=== PATIENT | male | born 1985 | race Caucasian/White ===

== ENCOUNTER → 2019-06-27 14:15 | Outpatient (BNVA) | payer MEDICARE, MEDICAID, SELFPAY | PROVIDERS: Family Provider Nurse Practitioner; PCP Nurse Practitioner; Visit Provider Nurse Practitioner Family | DX: Z00.00 Encounter for general adult medical examination without abnormal findings (principal); D64.9 Anemia, unspecified; Z71.3 Dietary counseling and surveillance; Z71.82 Exercise counseling; G80.9 Cerebral palsy, unspecified; D50.9 Iron deficiency anemia, unspecified; K59.00 Constipation, unspecified | CPT/HCPCS: 82728; 83540; 85025 ==

== ENCOUNTER → 2019-06-30 08:54 | Outpatient (BNVA) | payer MEDICARE, MEDICAID, SELFPAY | PROVIDERS: Family Provider Nurse Practitioner; PCP Nurse Practitioner; Visit Provider Psychiatry & Neurology Psychiatry | DX: F06.30 Mood disorder due to known physiological condition, unspecified (principal) | CPT/HCPCS: 80053; 80156 ==

== ENCOUNTER → 2019-08-11 11:27 | Outpatient (BNVA) | payer MEDICARE, MEDICAID, SELFPAY | PROVIDERS: Family Provider Nurse Practitioner; PCP Nurse Practitioner; Visit Provider Nurse Practitioner Family | DX: Z76.0 Encounter for issue of repeat prescription (principal); R79.89 Other specified abnormal findings of blood chemistry; G81.10 Spastic hemiplegia affecting unspecified side; Z00.00 Encounter for general adult medical examination without abnormal findings; Z71.3 Dietary counseling and surveillance; Z71.82 Exercise counseling; G80.9 Cerebral palsy, unspecified; D64.9 Anemia, unspecified; F06.30 Mood disorder due to known physiological condition, unspecified | CPT/HCPCS: 82728; 83540; 85025 ==

== ENCOUNTER → 2019-08-31 15:34 | Outpatient (BNVA) | payer MEDICARE, MEDICAID, SELFPAY | PROVIDERS: Family Provider Nurse Practitioner; PCP Nurse Practitioner; Visit Provider Nurse Practitioner Family | DX: R50.9 Fever, unspecified (principal); J11.1 Influenza due to unidentified influenza virus with other respiratory manifestations | CPT/HCPCS: 87081; 87804; 87880 ==

== ENCOUNTER → 2019-10-17 10:53 | Outpatient (BNVA) | payer MEDICARE, MEDICAID, SELFPAY | PROVIDERS: Family Provider Nurse Practitioner; PCP Nurse Practitioner; Visit Provider Nurse Practitioner | DX: R79.89 Other specified abnormal findings of blood chemistry (principal) | CPT/HCPCS: 83550; 85025 ==

== ENCOUNTER → 2019-12-06 10:31 | Outpatient (BNVA) | payer MEDICARE, MEDICAID, SELFPAY | PROVIDERS: Family Provider Nurse Practitioner; PCP Nurse Practitioner; Visit Provider Nurse Practitioner | DX: R21 Rash and other nonspecific skin eruption (principal); G80.9 Cerebral palsy, unspecified; L50.9 Urticaria, unspecified | CPT/HCPCS: 87071; 87880 ==

== ENCOUNTER → 2020-04-10 09:38 | Outpatient (BNVA) | payer MEDICARE, MEDICAID, SELFPAY | PROVIDERS: Family Provider Nurse Practitioner; PCP Nurse Practitioner; Visit Provider Nurse Practitioner | DX: F06.30 Mood disorder due to known physiological condition, unspecified (principal) | CPT/HCPCS: 80053; 80156; 85025 ==

== ENCOUNTER 2020-05-11 12:18 | Outpatient (CLI) | payer MEDICARE, MEDICAID, SELFPAY ==
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
== END 2020-05-11 12:19 | disposition home or self-care (01) ==
PROVIDERS: PCP Nurse Practitioner; Visit Provider Internal Medicine Medical Oncology
DX: D70.9 Neutropenia, unspecified (principal); G40.509 Epileptic seizures related to external causes, not intractable, without status epilepticus; G81.10 Spastic hemiplegia affecting unspecified side; X58.XXXS Exposure to other specified factors, sequela; R29.818 Other symptoms and signs involving the nervous system; Z87.820 Personal history of traumatic brain injury; Z79.899 Other long term (current) drug therapy
CPT/HCPCS: 99204

== ENCOUNTER 2020-05-31 11:05 | Outpatient (CLI) | payer MEDICARE, MEDICAID, SELFPAY ==
[2020-05-31 15:07] LABS: Basophils % 0.6 %; Eosinophils # 0.1 10^3/uL (0.0-0.8); Eosinophils % 3.7 %; Hemoglobin 13.5 g/dL (11.7-16.6); Lymphocytes # 1.5 10^3/uL (0.8-4.8); Lymphocytes % 41.1 %; Mean Corpuscular HGB Conc 31.4 g/dL (30.0-36.0); Mean Corpuscular Hemoglobin 25.5 pg (28.0-34.0); Mean Corpuscular Volume 81.1 fL (80-94); Monocytes # 0.4 10^3/uL (0.2-0.9); Monocytes % 10.7 %; Neutrophils # 1.55 10^3/uL (1.8-7.7); Neutrophils % 43.6 %; Nucleated Red Blood Cells % 0 %; Platelet Count 195 10^3/cmm (130-400); Red Cell Distribution Width 13.8 % (12.1-15.1); White Blood Count 3.6 10^3/uL (4.0-10.0)
[2020-05-31 15:41] LABS: Ferritin 484 ng/mL (30-400); Iron 178 ug/dL (59-158); Vitamin B12 457 pg/mL (232-1245)
[2020-05-31 16:53] LABS: Percent Saturation 78.4 % (20-50); Total Iron Binding Capacity 227 mcg/dl; Unsaturated Iron Binding 49 ug/dL (112-347)
== END 2020-05-31 11:06 | disposition home or self-care (01) ==
LOC: ONCMED 15:50
PROVIDERS: PCP Nurse Practitioner; Visit Provider Internal Medicine Medical Oncology
DX: D50.9 Iron deficiency anemia, unspecified (principal); D51.9 Vitamin B12 deficiency anemia, unspecified; D70.2 Other drug-induced agranulocytosis; T45.1X5A Adverse effect of antineoplastic and immunosuppressive drugs, initial encounter
CPT/HCPCS: 36415; 82607; 82728; 83540; 83550; 85025

== ENCOUNTER 2020-10-02 17:10 | Outpatient (CLI) | payer MEDICARE, MEDICAID, SELFPAY ==
[2020-10-02 18:54] LABS: Basophils % 0.6 %; Eosinophils # 0.2 10^3/uL (0.0-0.8); Eosinophils % 4.7 %; Hematocrit 42.8 % (42.0-52.0); Hemoglobin 13.5 g/dL (11.7-16.6); Lymphocytes # 1.4 10^3/uL (0.8-4.8); Lymphocytes % 41.9 %; Mean Corpuscular HGB Conc 31.5 g/dL (30.0-36.0); Mean Corpuscular Volume 79.4 fL (80-94); Mean Platelet Volume 10.6 fL (7.4-10.4); Monocytes # 0.2 10^3/uL (0.2-0.9); Monocytes % 6.8 %; Neutrophils # 1.48 10^3/uL (1.8-7.7); Nucleated Red Blood Cells % 0 %; Platelet Count 234 10^3/cmm (130-400); Red Blood Count 5.39 10^6/uL (4.1-5.3); Red Cell Distribution Width 13.7 % (12.1-15.1); White Blood Count 3.2 10^3/uL (4.0-10.0)
[2020-10-02 19:46] LABS: Folate Level 18.6 ng/mL (4.5-32.2)
[2020-10-02 19:56] LABS: Ferritin 512 ng/mL (30-400); Iron 101 ug/dL (59-158); Percent Saturation 47.1 % (20-50); Total Iron Binding Capacity 214 mcg/dl; Unsaturated Iron Binding 113 ug/dL (112-347); Vitamin B12 508 pg/mL (232-1245)
== END 2020-10-02 17:11 | disposition home or self-care (01) ==
LOC: ONCMED 10-03 09:55
PROVIDERS: PCP Nurse Practitioner; Visit Provider Internal Medicine Medical Oncology
DX: D70.2 Other drug-induced agranulocytosis (principal); T50.905A Adverse effect of unspecified drugs, medicaments and biological substances, initial encounter
CPT/HCPCS: 82607; 82728; 82746; 83540; 83550; 85025

== ENCOUNTER 2020-10-04 08:38 | Outpatient (CLI) | payer MEDICARE, MEDICAID, SELFPAY ==
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
== END 2020-10-04 08:39 | disposition home or self-care (01) ==
LOC: ONCMED 08:41
PROVIDERS: PCP Nurse Practitioner Family; Visit Provider Internal Medicine Medical Oncology
DX: E83.110 Hereditary hemochromatosis (principal); D70.9 Neutropenia, unspecified; D50.9 Iron deficiency anemia, unspecified; Z79.899 Other long term (current) drug therapy
CPT/HCPCS: 99214

== ENCOUNTER 2022-05-19 21:29 | Emergency (ER) | payer MEDICARE, MEDICAID, SELFPAY ==
[2022-05-19 21:43] VITALS: BP 134/87; PULSE 105; RESP 16; TEMP 36.4; O2SAT 97
--- NOTE | 2022-05-19 21:49 | W.ED.WOUNDLC ---
HPI - Wound/Laceration General: Chief Complaint: Wound/Laceration Stated Complaint: Fell Busted Chin Time Seen by Provider: 05/19/22 21:48 History of Present Illness: 36-year-old male patient in a assisted living care facility tripped and fell hitting his chin on ground the ground. No loss of consciousness was noted. Patient has a injury to the chin that needs to be evaluated. Patient moves all extremities. Patient is nontoxic in appearance. Patient has a history of cerebral palsy and intellectual disability. Associated symptoms: Denies fever(s) Review of Systems Const: Denies: fever(s) Card: Denies: chest pain Resp: Denies: dyspnea Skin/Breast: Reports: new lesions [facility] ED PFS: Medical History (Updated 05/19/22 @ 21:57 by ROBERTA Whitfield) Cerebral palsy Chronic constipation Environmental and seasonal allergies Iron deficiency anemia Mood disorder Seizure disorder Spastic hemiparesis Surgical History History of brain surgery History of surgery on arm Social History Smoking and tobacco status: never smoked Second hand smoke exposure: No Smoking risk assessment/counseling performed?: No Alcohol intake: never Desire information about alcohol rehabilitation?: No Counseling given: No Desire information about substance/drug rehabilitation?: No Counseling given: No Caregiver/support person: Yes (Swifts) Lives independently: No Household members: caregiver Housing: House Marital status: Single Number of children: 0 service: No Current occupational status: disabled History of recent travel: No Sexually active: No Current gender identity: Male Physical Exam Const: COMMON NORMALS: alert HENMT: HEAD & SCALP: other (Abrasion anterior chin) Neck/C-Spine: COMMON NORMALS: full ROM Resp: COMMON NORMALS: normal respiratory effort and clear to auscultation bilaterally AUSCULTATION: clear to auscultation bilaterally Cardio: COMMON NORMALS: regular rate and regular rhythm RATE: regular rate RHYTHM: regular rhythm Extremity: COMMON NORMALS: full ROM Neuro: SENSORIUM/ORIENTATION: Yes alert Skin: TRAUMA: abrasion (2 cm area of abrasion to the anterior chin, no laceration.) Course Vital Signs: Vital signs: Vital Signs Temperature 97.6 F 11/28/22 21:43 Pulse Rate 105 H 05/19/22 21:43 Respiratory Rate 16 05/19/22 21:43 Blood Pressure 134/87 05/19/22 21:43 Pulse Oximetry 97 05/19/22 21:43 Oxygen Delivery Me thod 05/19/22 21:43 MDM - Wound/Laceration Medical Decision Making Patient comes in for evaluation of injury to the chin. On exam patient has an abrasion to the chin no significant laceration is noted. No injury to the teeth or tongue is noted. Patient manages secretions well. Vital signs are normal. Respirations are even lungs are clear to auscultation. Differential diagnosis includes but not limited to fracture, foreign body, laceration, abrasion. No obvious laceration needing repair is noted. No foreign body or fracture is noted. Reviewed exam with patient and caregivers with recommendations for treatment and follow-up. Caregivers reported understanding agreed to plan. Discharge Plan Discharge Patient Disposition: Home Clinical Impression: Abrasion of chin Qualifiers: Encounter type: initial encounter Qualified Code(s): S00.81XA - Abrasion of other part of head, initial encounter Condition: Stable Prescriptions: New bacitracin 500 unit/gram ointment 1 applic topical BID Qty: 28.4 0RF Rx Instructions: til wound healed No Action carbamazepine 200 mg capsule, ER multiphase 12 hr 200 mg PO BID clonazepam 0.5 mg tablet 0.5 mg PO BID Rx Instructions: take on in the am and one at 4 pm. ferrous sulfate 325 mg (65 mg iron) tablet 325 mg PO ONCE olanzapine 20 mg tablet 20 mg PO BID Rx Instructions: 0.5 tab ketoconazole 2 % cream 1 applic TOPICAL BID 14 Days Qty: 60 0RF Rx Instructions: apply BID to areas on both arms, large area docusate sodium [Colace] 100 mg capsule 100 mg PO BID 30 Days Qty: 60 11RF polyethylene glycol 3350 [Miralax] 17 gram/dose powder 17 gm PO Q72H PRN (Reason: constipation) 30 Days Qty: 850 11RF Rx Instructions: use if 72 hours without bowel movement terbinafine HCl 250 mg tablet 250 mg PO DAILY 14 Days Qty: 14 0RF acetaminophen [Tylenol] 325 mg capsule 325 mg PO QID PRN (Reason: fever or pain) Qty: 50 11RF Rx Instructions: tablets guaifenesin [Mucinex] 600 mg tablet extended release 12hr 600 mg PO BID PRN (Reason: congestion) 30 Days Qty: 60 11RF (DME) arm brace Misc See Rx Instructions .ROUTE .MEDSUPPLY Qty: 1 0RF Rx Instructions: LEFT RESTING HAND SPLINT 8 HOURS PER DAY - WAKING HOURS (DME) Knee Support Brace Misc See Rx Instructions .ROUTE .MEDSUPPLY Qty: 1 0RF Rx Instructions: LEFT KNEE BRACE PRN USE FOR SUPPORT (DME) leg brace Misc See Rx Instructions .ROUTE .MEDSUPPLY Qty: 1 0RF Rx Instructions: LEFT LEG AFO WEAR 8 HOURS PER DAY - WAKING HOURS loratadine [Claritin] 10 mg tablet 10 mg PO ONCE Qty: 30 11RF multivitamin Tablet 1 tab PO QAM 30 Days Qty: 30 11RF glycopyrrolate 2 mg tablet 2 mg PO TID 30 Days Qty: 90 11RF Discharge Orders: Discharge ED (Routine); Ordered 05/19/22 Ordered By: Radames Ratliff Referrals: Nicole Desai FNP [Primary Care Provider] - Discharge Diet: Usual diet Discharge Activity: Increase activity as tolerated Patient Instructions: Wound Care (General) Activity Restrictions/Additional Instructions: Keep wound clean and dry. Apply antibiotic ointment twice a day to wound until healed. Follow-up with primary care in 3 days for recheck of wound. Return to ED for high fever, increased redness and swelling of the chin, or new concerns. 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
== END 2022-05-19 22:05 | disposition home or self-care (01) ==
PROVIDERS: Emergency Provider Nurse Practitioner Family; PCP Nurse Practitioner Family
DX: S00.81XA Abrasion of other part of head, initial encounter (principal); W01.0XXA Fall on same level from slipping, tripping and stumbling without subsequent striking against object, initial encounter
CPT/HCPCS: 99283

== ENCOUNTER 2022-07-03 11:13 | Oncology outpatient (recurring) (ONCR) | payer MEDICARE, MEDICAID, SELFPAY ==
[2022-07-03 12:47] LABS: LAB Peripheral Smear Sent for Review
[2022-07-03 12:52] LABS: Basophils % 0.4 %; Eosinophils # 0.2 10^3/uL (0.0-0.8); Eosinophils % 7.5 %; Hematocrit 43.3 % (42.0-52.0); Hemoglobin 13.8 g/dL (11.7-16.6); Lymphocytes # 1.1 10^3/uL (0.8-4.8); Lymphocytes % 40.4 %; Mean Corpuscular HGB Conc 31.9 g/dL (30.0-36.0); Mean Corpuscular Hemoglobin 25.2 pg (28.0-34.0); Mean Platelet Volume 10.6 fL (7.4-10.4); Monocytes # 0.3 10^3/uL (0.2-0.9); Monocytes % 9.4 %; Neutrophils # 1.13 10^3/uL (1.8-7.7); Neutrophils % 42.3 %; Nucleated Red Blood Cells % 0 %; Platelet Count 195 10^3/cmm (130-400); Red Blood Count 5.48 10^6/uL (4.1-5.3); Red Cell Distribution Width 13.4 % (12.1-15.1); Slide Review Slide Review Perform; White Blood Count 2.7 10^3/uL (4.0-10.0)
[2022-07-03 12:54] LABS: Alanine Aminotransferase 13 U/L (0-41); Albumin Level 4.5 g/dL (3.5-5.2); Alkaline Phosphatase 106 U/L (40-130); Anion Gap 11.5 (5-19); Aspartate Amino Transferase 14 U/L (0-40); Blood Urea Nitrogen 14 mg/dL (6-20); Calcium 9.5 mg/dL (8.5-10.5); Carbon Dioxide 28 mmol/L (22-29); Chloride 105 mmol/L (98-107); Ferritin 459 ng/mL (30-400); Globulin 3.1 g/dL (1.3-4.6); Glomerular Filtration Rate 244.8 mL/min (90-130); Glucose 99 mg/dL (65-115); Iron 158 ug/dL (59-158); Lactate Dehydrogenase 174 U/L (135-225); Osmolality Calculated 293 mOsm/kg (285-295); Percent Saturation 70.2 % (20-50); Potassium 3.5 mmol/L (3.5-5.1); Sodium 141 mmol/L (136-145); Total Bilirubin 0.2 mg/dL (0.15-1.2); Total Iron Binding Capacity 225 mcg/dl; Total Protein 7.6 g/dL (6.6-8.7); Unsaturated Iron Binding 67 ug/dL (112-347)
[2022-07-03 13:10] LABS: Vitamin B12 504 pg/mL (232-1245)
[2022-07-03 13:37] LABS: Folate Level > 20.0 ng/mL (4.5-32.2)
== END 2022-07-22 23:59 | disposition home or self-care (01) ==
PROVIDERS: PCP Nurse Practitioner Family; Visit Provider Internal Medicine Medical Oncology
DX: D70.9 Neutropenia, unspecified (principal); R79.89 Other specified abnormal findings of blood chemistry
CPT/HCPCS: 36415; 80053; 81256; 82607; 82728; 82746; 83540; 83550; 83615; 85025; 99214

== ENCOUNTER 2023-09-15 12:01 | Oncology outpatient (recurring) (ONCR) | payer MEDICARE, MEDICAID, SELFPAY ==
[2023-09-15 12:32] LABS: Basophils % 0.3 %; Eosinophils # 0.2 10^3/uL (0.0-0.8); Eosinophils % 5.5 %; Hematocrit 38.2 % (37-53); Lymphocytes # 1.1 10^3/uL (0.8-4.8); Lymphocytes % 36.9 %; Mean Corpuscular HGB Conc 32.7 g/dL (30-55); Mean Corpuscular Hemoglobin 25.4 pg (27-33); Mean Corpuscular Volume 77.6 fl (82-101); Monocytes # 0.2 10^3/uL (0.2-0.9); Monocytes % 7.8 %; Neutrophils # 1.44 10^3/uL (1.8-7.7); Neutrophils % 49.2 %; Nucleated Red Blood Cells % 0 %; Platelet Count 177 10^3/cmm (157-399); Red Blood Count 4.92 10^6/uL (3.85-5.65); Red Cell Distribution Width 13.4 % (12.1-15.1); Reticulocyte % 0.9 % (0.5-2.0); White Blood Count 2.93 10^3/uL (3.29-11.43)
[2023-09-15 12:59] LABS: Alanine Aminotransferase 14 U/L (0-41); Albumin Level 4.1 g/dL (3.5-5.2); Alkaline Phosphatase 107 U/L (40-130); Anion Gap 13.8 (5-19); Aspartate Amino Transferase 15 U/L (0-40); Blood Urea Nitrogen 16 mg/dL (6-20); Calcium 8.9 mg/dL (8.5-10.5); Carbon Dioxide 26 mmol/L (22-29); Chloride 103 mmol/L (98-107); Globulin 2.6 g/dL (1.3-4.6); Glomerular Filtration Rate 337.4 mL/min (90-130); Glucose 97 mg/dL (65-115); Iron 126 ug/dL (59-158); Lactate Dehydrogenase 181 U/L (135-225); Osmolality Calculated 289 mOsm/kg (285-295); Percent Saturation 64.6 % (20-50); Potassium 3.8 mmol/L (3.5-5.1); Sodium 139 mmol/L (136-145); Total Bilirubin 0.2 mg/dL (0.15-1.2); Total Iron Binding Capacity 195 mcg/dl; Total Protein 6.7 g/dL (6.6-8.7); Unsaturated Iron Binding 69 ug/dL (112-347)
[2023-09-15 13:15] LABS: Vitamin B12 604 pg/mL (232-1245)
[2023-09-15 13:43] LABS: Folate Level > 20.0 ng/mL (4.5-32.2)
[2023-09-15 13:46] LABS: Ferritin 435 ng/mL (30-400)
== END 2023-09-20 23:59 | disposition home or self-care (01) ==
PROVIDERS: PCP Nurse Practitioner Family; Visit Provider Internal Medicine Medical Oncology
DX: R79.89 Other specified abnormal findings of blood chemistry (principal); D70.9 Neutropenia, unspecified; Z79.899 Other long term (current) drug therapy
CPT/HCPCS: 36415; 80053; 82607; 82728; 82746; 83010; 83540; 83550; 83615; 85025; 85045; 86880; 99214

== ENCOUNTER 2024-07-23 06:30 | Outpatient (RCR) | payer MEDICARE, MEDICAID, SELFPAY | END 2024-08-19 23:59 | disposition home or self-care (01) | LOC: AST 06:30 | PROVIDERS: Visit Provider Nurse Practitioner Family | DX: R63.39 Other feeding difficulties (principal) | CPT/HCPCS: 92610 ==

== ENCOUNTER 2025-02-10 09:59 | Emergency (ER) | payer OTHER, MEDICAID, SELFPAY ==
[2025-02-10 10:04] VITALS: BP 110/66; PULSE 140; RESP 18; TEMP 36.4; O2SAT 96
--- OUTSIDE RECORDS SUMMARY | 2025-02-10 10:07 | XMS_ITS | Clinical Summary ---
Author Organization [facility] Address [address] Pollockn: Epic Prelude ADT [place] [address] Care Team Providers Care Braider Tender Name Role Phone Unavailable Primary Care Provider Unavailabl e Allergies No known active allergies Medications fluocinonide (LIDEX) 0.05 % Solution 02/27/2015 Active baclofen (LIORESAL) 10 mg tablet Take 1 Tab (10 mg) by mouth 3 times daily as needed for Pain. 90 Tablet 6 09/14/2014 Active metroNIDAZOLE (METROGEL) 0.75 % Gel 03/15/2015 Active glycopyrrolate (ROBINUL) 2 mg TabletIndications :Hypersecretion of saliva,CP (cerebral palsy), spastic, quadriplegic (CMS/HCC),Spastic ity Take 1 Tab (2 mg) by mouth 3 times daily Take 2mg tid. 30 Tablet 3 01/24/2015 Active polyethylene glycol (MIRALAX) 17 gram Powder in Packet Take 17 Gram by mouth daily. 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 Gender Identity Not on file Sexual Orientation Not on file Last Filed Vital Signs Vital Sign Reading Time Taken Comments Blood Pressure 122/75 01/21/2016 11:20 AM CDT Pulse 79 01/21/2016 11:20 AM CDT Temperature - - Respiratory Rate - - Oxygen Saturation - - Inhaled Oxygen Concentration - - Weight 59 kg (130 lb) 01/21/2016 11:20 AM CDT Height 177.8 cm (5' 10 ) 01/21/2016 11:20 AM CDT Body Mass Index 18.65 01/21/2016 11:20 AM CDT Plan of Treatment Health Maintenance Due Date Last Done Comments HPV VACCINES (1 - Male 3-dose series) 2001 DTAP/TDAP/TD VACCINES (1 - Tdap) 2005 HEPATITIS B VACCINES (1 of 3 - 19+ 3-dose series) 06/23 INFLUENZA VACCINE (#1) 2025
--- OUTSIDE RECORDS SUMMARY | 2025-02-10 10:07 | XMS_ITS | Clinical Summary ---
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 4 Active clonazePAM (KLONOPIN) 0.5 mg Tablet Take 0.5 mg by mouth 2 times daily. 4 Active desonide (DESOWEN) 0.05 % Ointment 2 times daily. 4 Active OLANZapine (ZYPREXA) 20 mg tablet Take 20 mg by mouth daily. 4 Active ferrous sulfate (FEOSOL) 325 mg (65 mg iron) tablet Take 325 mg by mouth daily. Active loratadine (CLARITIN) 10 mg tablet Take 10 mg by mouth daily. Active AMINO AC/ACEMANN/MV (MULTIVIT W/XNYA-NIS-NP-ACEM TERESA ORAL) Take by mouth. Active BISMUTH SUBSALICYLATE (PEPTO-BISMOL ORAL) Take by mouth. Active MAGNESIUM HYDROXIDE (MILK OF MAGNESIA ORAL) Take by mouth. Active GUAIFENESIN (MUCINEX ORAL) Take by mouth. Active diphenhydrAMINE (BENADRYL) 25 mg capsule Take 25 mg by mouth every 6 hours as needed. Active metroNIDAZOLE (METROGEL) 1 % Gel Apply to affected area. Active DESONIDE TOPICAL Apply to affected area. Active KETOCONAZOLE (NIZORAL ORAL) Take by mouth. Active OTHER daily. 1 Each 0 4 Active OTHER daily. 1 Each 0 4 Active OTHER daily at bedtime. 1 Each 0 4 Active MULTIVITAMIN ORAL Take by mouth. Active baclofen (LIORESAL) 10 mg tablet Take 1 Tab (10 mg) by mouth 3 times daily as needed for Pain. 90 Tab 6 5 Active glycopyrrolate (ROBINUL) 2 mg TabletIndications: Hypersecretion of saliva,CP (cerebral palsy), spastic, quadriplegic (CMS/HCC),Spastici ty Take 1 Tab (2 mg) by mouth 3 times daily Take 2mg tid. 30 Tab 3 5 Active Fluocinonide (LIDEX) 0.05 % Solution 5 Active metroNIDAZOLE (METROGEL) 0.75 % Gel 5 Active polyethylene glycol (MIRALAX) 17 gram Powder in Packet Take 17 Gram by mouth daily. 

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
== END 2025-02-10 10:58 | disposition home or self-care (01) ==
PROVIDERS: Emergency Provider Physician Assistant; PCP Nurse Practitioner Family
DX: Z04.1 Encounter for examination and observation following transport accident (principal)
CPT/HCPCS: 99281